=== PATIENT | female | born 1945 | race Caucasian/White ===

== ENCOUNTER 2018-12-28 20:10 | Emergency (ER) | payer OTHER, SELFPAY ==
--- NOTE | 2018-12-28 20:14 | DI.RAD.S_ITS ---
PROCEDURE: XR RIBS RT MIN 3V W CXR 1V INDICATIONS: fall from standing onto ribs TECHNIQUE: 2 views of the right ribs were acquired, along with a single view chest. COMPARISON: None. FINDINGS: Surgical changes and devices: None. Bones and chest wall: No fractures or dislocations. No suspicious bony lesions. Severe degenerative changes are present at the acromioclavicular and glenohumeral joints. Overlying soft tissues appear unremarkable. Lungs and pleura: No pleural effusions or pneumothorax. Lungs appear clear. Mediastinum: Mediastinal contours appear normal. Heart size is normal. IMPRESSION: No displaced rib fractures. No acute cardiopulmonary findings. Dictated by: Vee Gentile M.D. on 12/28/2018 at 20:43 Approved by: Vee Gentile M.D. on 12/28/2018 at 20:44
[2018-12-28 20:18] VITALS: BP 123/74; PULSE 77; RESP 20; O2SAT 100
--- NOTE | 2018-12-28 20:22 | ED.FALL ---
HPI - Fall General Chief Complaint: Fall Stated Complaint: fell off boat, flank pain Time Seen by Provider: 12/28/18 20:11 Source: patient and EMS Mode of arrival: EMS Limitations: no limitations History of Present Illness HPI Narrative: 73-year-old female nonsmoker with history of depression presents by EMS for evaluation of right-sided posterior back pain. She was pulling a rope on her boat when the rope gave way and she fell backwards onto her right inferior ribs. She has pain with any movement of her torso, palpation or deep breath of her right ribs but denies any perception of shortness of breath or cough with bloody sputum. She denies any abdominal pain. She has no head neck or extremity pain. She is not dizzy nor weak or lightheaded. MD complaint: fall Onset (ago): minute(s) Fall from: standing Fall witnessed: yes, by family Place fall occurred: home Loss of consciousness: none Prolonged down time: no Symptoms prior to fall: none Context: tripped/slipped Location of injury: back Severity: moderate Quality: sharp Associated symptoms (after fall): shortness of breath (related to pain with breath, not lacking oxygen (per patient)) Related Data Home Medications Medication Instructions Recorded Confirmed venlafaxine [Effexor XR] See Rx Instructions .ROUTE .COMPLEX 12/28/18 12/28/18 Previous Rx's Medication Instructions Recorded ibuprofen 600 mg PO TID-QID PRN #20 tab 12/28/18 lidocaine [Lidoderm] 1 patch TOP DAILY #15 each 12/28/18 Review of Systems Constitutional Denies chills, Denies fever(s), Denies lethargy and Denies weakness Eyes Denies change in vision, Denies eye discharge, Denies irritation and Denies loss of vision ENT Ears, Nose, Mouth, and Throat: Denies change in voice, Denies neck pain and Denies sore throat Cardiovascular Denies chest pain, Denies irregular heart rhythm, Denies lightheadedness, Denies palpitations, Denies dyspnea, Denies dyspnea on exertion and Denies orthopnea Respiratory Denies cough, Denies dyspnea, Denies dyspnea on exertion and Denies wheezing Gastrointestinal Gastrointestinal: Denies abdominal pain, Denies change in bowel habits, Denies diarrhea, Denies nausea and Denies vomiting Genitourinary Denies hematuria, Denies flank pain, Denies urinary incontinence and Denies urinary urgency Musculoskeletal Reports back pain and Denies neck pain Integumentary/Breasts Denies pruritus, Denies erythema, Denies rash and Denies wounds Neurologic Denies confusion, Denies loss of vision and Denies weakness Psychiatric Denies anxiety, Denies confusion, Denies depression, Denies homicidal ideation and Denies suicidal ideation Endocrine Denies palpitations Hematologic/Lymphatic Denies easy bruising Allergic/Immunologic Denies wheezing Exam Narrative Exam Narrative: GENERAL: This is a well-nourished, well-developed patient, in mild distress with deep breath or motion. GCS 15. AOx3 HEAD: Atraumatic. Normocephalic. No temporal or scalp tenderness. EYES: Pupils equal round and reactive. Extraocular motions intact. ENT: Nose without bleeding, purulent drainage or septal hematoma. Throat without erythemaAirway patent. NECK: Trachea midline. No JVD or lymphadenopathy. Supple, nontender, no meningeal signs. CARDIOVASCULAR: Regular rate and rhythm without murmurs, gallops, or rubs. RESPIRATORY: Clear to auscultation. Breath sounds equal bilaterally. No wheezes, rales, or rhonchi. GASTROINTESTINAL: Abdomen soft, non-tender, nondistended. No hepato-splenomegaly, or palpable masses. No guarding. EXTREMITIES: No clubbing, cyanosis, or edema. No joint tenderness, effusion, or edema noted. BACK: Pain on palpation of R lower posterior ribs, visible contusion/abrsion. No obvious or palpable deformity, clicking, or crepitance NEURO: AOx3. SKIN: No rash or erythema. Initial Vital Signs Initial Vital Signs: Vital Signs Pulse Rate 77 12/28/18 20:18 Respiratory Rate 20 12/28/18 20:18 Blood Pressure 123/74 12/28/18 20:18 Pulse Oximetry 100 12/28/18 20:18 [facility] Social History (Updated 12/28/18 @ 20:26 by Manpreet Segura DO) Smoking Status: Never smoker Course Orders Ordered: ED Orders 12/28/18 20:14 XR ribs RT min 3V w CXR1V Stat Discontinued Medications Ibuprofen (Advil) 400 mg PO NOW ONE Stop: 12/28/18 20:18 Last Admin: 12/28/18 20:40 Dose: 400 mg Lidocaine (Lidoderm) 1 each TOP NOW ONE Stop: 12/28/18 20:15 Last Admin: 12/28/18 20:40 Dose: 1 each Vital Signs - 8 hr 12/28/18 20:18 Pulse Rate 77 Respiratory Rate 20 Blood Pressure 123/74 Pulse Oximetry 100 MDM - Fall Lab Data Urine Dip Bedside Urine Glucose Negative Bedside Urine Bilirubin - Negative Bedside Urine Ketone - Negative Urine Specific [place] 1.010 Bedside Urine Occult Blood - Negative Bedside Urine pH 7.5 Bedside Urine Protein - Negative Bedside Urine Urobilinogen - Negative Bedside Urine Nitrite - Negative Bedside Urine Leukocytes - Negative Esterase Imaging Data Chest x-ray: Attestation: I personally reviewed and interpreted this imaging study as follows: My impression: No fracture. No PTX Radiologist's impression: [address] [address] XRay Report Signed Patient: Rianna Anton#: [id number] : 4Acct:[id number] Age/Sex: 73 / FDate of Service: 12/28/18 Loc: ED Accession Number: [id number] Procedure: XR ribs RT min 3V w CXR1V Ordering Provider: Manpreet Segura D.O. PROCEDURE: XR RIBS RT MIN 3V W CXR 1V INDICATIONS: fall from standing onto ribs TECHNIQUE: 2 views of the right ribs were acquired, along with a single view chest. COMPARISON: None. FINDINGS: Surgical changes and devices: None. Bones and chest wall: No fractures or dislocations. No suspicious bony lesions. Severe degenerative changes are present at the acromioclavicular and glenohumeral joints. Overlying soft tissues appear unremarkable. Lungs and pleura: No pleural effusions or pneumothorax. Lungs appear clear. Mediastinum: Mediastinal contours appear normal. Heart size is normal. IMPRESSION: No displaced rib fractures. No acute cardiopulmonary findings. Dictated by: Vee Gentile M.D. on 12/28/2018 at 20:43 Approved by: Vee Gentile M.D. on 12/28/2018 at 20:44 [facility] Narrative Medical decision making narrative: Multiple etiologies for patient's symptoms considered including: [rib fracture vs. rib contusion vs. pneumothorax vs. kidney injury vs. other] Patient's symptoms improved or duration of stay with above-stated therapies. No blood in urine, no pain in abdomen, not likely intraabdominal etiology. Findings and discharge diagnosis discussed with patient/family followed by verbalization of understanding Return precautions discussed with patient/family whom verbalize understanding. Discharge Plan Departure Patient Disposition: Home Clinical Impression: Contusion of rib on right side Qualifiers: Encounter type: initial encounter Qualified Code(s): S20.211A - Contusion of right front wall of thorax, initial encounter Instructions: DI for Rib Contusion Activity Restrictions/Additional Instructions: *You have been diagnosed with [fall with right-sided rib contusion, possible small hidden fracture not seen on x-ray] *What to do: *Take medications as directed *Follow up with your primary care provider in 2-3 days, call for an appointment. Let them know you were seen in the Emergency Department and that we ask that you be seen in follow up *Return to ER if you should have any new, worsening or concerning symptoms, such as [worsening pain, shortness of breath, cough with blood-tinged sputum, blood in her urine, abdominal pain or significant bruising on her abdomen or groin or other bothersome symptoms] Prescriptions: New lidocaine [Lidoderm] 5 % adhesive patch,medicated 1 patch TOP DAILY Qty: 15 RF: 0 ibuprofen 600 mg tablet 600 mg PO TID-QID PRN (Reason: pain) Qty: 20 RF: 0 No Action venlafaxine [Effexor XR] 75 mg Capsule,Extended Release 24hr See Rx Instructions .ROUTE .COMPLEX RF: 0
--- NOTE | 2018-12-28 20:25 | ED_ITS ---
HPI - Fall General Chief Complaint: Fall Stated Complaint: fell off boat, flank pain Time Seen by Provider: 12/28/18 20:11 Source: patient and EMS Mode of arrival: EMS Limitations: no limitations History of Present Illness HPI Narrative: 73-year-old female nonsmoker with history of depression presents by EMS for evaluation of right-sided posterior back pain. She was pulling a rope on her boat when the rope gave way and she fell backwards onto her right inferior ribs. She has pain with any movement of her torso, palpation or deep breath of her right ribs but denies any perception of shortness of breath or cou gh with bloody sputum. She denies any abdominal pain. She has no head neck or extremity pain. She is not dizzy nor weak or lightheaded. MD complaint: fall Onset (ago): minute(s) Fall from: standing Fall witnessed: yes, by family Place fall occurred: home Loss of consciousness: none Prolonged down time: no Symptoms prior to fall: none Context: tripped/slipped Location of injury: back Severity: moderate Quality: sharp Associated symptoms (after fall): shortness of breath (related to pain with breath, not lacking oxygen (per patient)) Related Data Home Medications Medication Instructions Recorded Confirmed venlafaxine [Effexor XR] See Rx Instructions .ROUTE .COMPLEX 12/28/18 12/28/18 Previous Rx's Medication Instructions Recorded ibuprofen 600 mg PO TID-QID PRN #20 tab 12/28/18 lidocaine [Lidoderm] 1 patch TOP DAILY #15 each 12/28/18 Review of Systems Constitutional Denies chills, Denies fever(s), Denies lethargy and Denies weakness Eyes Denies change in vision, Denies eye discharge, Denies irritation and Denies loss of vision ENT Ears, Nose, Mouth, and Throat: Denies change in voice, Denies neck pain and Denies sore throat Cardiovascular Denies chest pain, Denies irregular heart rhythm, Denies lightheadedness, Denies palpitations, Denies dyspnea, Denies dyspnea on exertion and Denies orthopnea Respiratory Denies cough, Denies dyspnea, Denies dyspnea on exertion and Denies wheezing Gastrointestinal Gastrointestinal: Denies abdominal pain, Denies change in bowel habits, Denies diarrhea, Denies nausea and Denies vomiting Genitourinary Denies hematuria, Denies flank pain, Denies urinary incontinence and Denies urinary urgency Musculoskeletal Reports back pain and Denies neck pain Integumentary/Breasts Denies pruritus, Denies erythema, Denies rash and Denies wounds Neurologic Denies confusion, Denies loss of vision and Denies weakness Psychiatric Denies anxiety, Denies confusion, Denies depression, Denies homicidal ideation and Denies suicidal ideation Endocrine Denies palpitations Hematologic/Lymphatic Denies easy bruising Allergic/Immunologic Denies wheezing Exam Narrative Exam Narrative: GENERAL: This is a well-nourished, well-developed patient, in mild distress with deep breath or motion. GCS 15. AOx3 HEAD: Atraumatic. Normocephalic. No temporal or scalp tenderness. EYES: Pupils equal round and reactive. Extraocular motions intact. ENT: Nose without bleeding, purulent drainage or septal hematoma. Throat without erythemaAirway patent. NECK: Trachea midline. No JVD or lymphadenopathy. Supple, nontender, no meningeal signs. CARDIOVASCULAR: Regular rate and rhythm without murmurs, gallops, or rubs. RESPIRATORY: Clear to auscultation. Breath sounds equal bilaterally. No wheezes, rales, or rhonchi. GASTROINTESTINAL: Abdomen soft, non-tender, nondistended. No hepato- splenomegaly, or palpable masses. No guarding. EXTREMITIES: No clubbing, cyanosis, or edema. No joint tenderness, effusion, or edema noted. BACK: Pain on palpation of R lower posterior ribs, visible contusion/abrsion. No obvious or palpable deformity, clicking, or crepitance NEURO: AOx3. SKIN: No rash or erythema. Initial Vital Signs Initial Vital Signs: Vital Signs Pulse Rate 77 12/28/18 20:18 Respiratory Rate 20 12/28/18 20:18 Blood Pressure 123/74 12/28/18 20:18 Pulse Oximetry 100 12/28/18 20:18 [facility] Social History (Updated 12/28/18 @ 20:26 by Manpreet Segura DO) Smoking Status: Never smoker Course Orders Ordered: ED Orders 12/28/18 20:14 XR ribs RT min 3V w CXR1V Stat Discontinued Medications Ibuprofen (Advil) 400 mg PO NOW ONE Stop: 12/28/18 20:18 Last Admin: 12/28/18 20:40 Dose: 400 mg Lidocaine (Lidoderm) 1 each TOP NOW ONE Stop: 12/28/18 20:15 Last Admin: 12/28/18 20:40 Dose: 1 each Vital Signs - 8 hr 12/28/18 20:18 Pulse Rate 77 Respiratory Rate 20 Blood Pressure 123/74 Pulse Oximetry 100 MDM - Fall Lab Data Urine Dip Bedside Urine Glucose Negative Bedside Urine Bilirubin - Negative Bedside Urine Ketone - Negative Urine Specific [place] 1.010 Bedside Urine Occult Blood - Negative Bedside Urine pH 7.5 Bedside Urine Protein - Negative Bedside Urine Urobilinogen - Negative Bedside Urine Nitrite - Negative Bedside Urine Leukocytes - Negative Esterase Imaging Data Chest x-ray: Attestation: I personally reviewed and interpreted this imaging study as follows: My impression: No fracture. No PTX Radiologist's impression: [address] [address] XRay Report Signed Patient: Rianna Anton#: [id number] : 4Acct:[id number] Age/Sex: 73 / FDate of Service: 12/28/18 Loc: ED Accession Number: [id number] Procedure: XR ribs RT min 3V w CXR1V Ordering Provider: Manpreet Segura D.O. PROCEDURE: XR RIBS RT MIN 3V W CXR 1V INDICATIONS: fall from standing onto ribs TECHNIQUE: 2 views of the right ribs were acquired, along with a single view chest. COMPARISON: None. FINDINGS: Surgical changes and devices: None. Bones and chest wall: No fractures or dislocations. No suspicious bony lesions. Severe degenerative changes are present at the acromioclavicular and glenohumeral joints. Overlying soft tissues appear unremarkable. Lungs and pleura: No pleural effusions or pneumothorax. Lungs appear clear. Mediastinum: Mediastinal contours appear normal. Heart size is normal. IMPRESSION: No displaced rib fractures. No acute cardiopulmonary findings. Dictated by: Vee Gentile M.D. on 12/28/2018 at 20:43 Approved by: Vee Gentile M.D. on 12/28/2018 at 20:44 [facility] Narrative Medical decision making narrative: Multiple etiologies for patient's symptoms considered including: [rib fracture vs. rib contusion vs. pneumothorax vs. kidney injury vs. other] Patient's symptoms improved or duration of stay with above-stated therapies. No blood in urine, no pain in abdomen, not likely intraabdominal etiology. Findings and discharge diagnosis discussed with patient/family followed by verbalization of understanding Return precautions discussed with patient/family whom verbalize understanding. Discharge Plan Departure Patient Disposition: Home Clinical Impression: Contusion of rib on right side Qualifiers: Encounter type: initial encounter Qualified Code(s): S20.211A - Contusion of right front wall of thorax, initial encounter Instructions: DI for Rib Contusion Activity Restrictions/Additional Instructions: *You have been diagnosed with [fall with right-sided rib contusion, possible small hidden fracture not seen on x-ray] *What to do: *Take medications as directed *Follow up with your primary care provider in 2-3 days, call for an appointment. Let them know you were seen in the Emergency Department and that we ask that you be seen in follow up *Return to ER if you should have any new, worsening or concerning symptoms, such as [worsening pain, shortness of breath, cough with blood-tinged sputum, blood in her urine, abdominal pain or significant bruising on her abdomen or groin or other bothersome symptoms] Prescriptions: New lidocaine [Lidoderm] 5 % adhesive patch,medicated 1 patch TOP DAILY Qty: 15 RF: 0 ibuprofen 600 mg tablet 600 mg PO TID-QID PRN (Reason: pain) Qty: 20 RF: 0 No Action venlafaxine [Effexor XR] 75 mg Capsule,Extended Release 24hr See Rx Instructions .ROUTE .COMPLEX RF: 0
[2018-12-28] MEDS: IBUPROFEN 400 MG TABLET PO (20:40)
[2018-12-28] MEDS: LIDOCAINE PATCH 1 EACH ADH..PATCH TOP (20:40)
[2018-12-28 22:04] VITALS: BP 138/78; PULSE 78; RESP 24; O2SAT 100
== END 2018-12-28 22:05 | disposition home or self-care (01) ==
PROVIDERS: Emergency Provider Emergency Medicine
DX: S20.211A Contusion of right front wall of thorax, initial encounter (principal); W19.XXXA Unspecified fall, initial encounter
CPT/HCPCS: 71101; 81003; 99282; 99283